=== PATIENT | female | born 1935 | race Hispanic/Latino ===

== ENCOUNTER 2017-07-14 10:45 | Day surgery (SDC) | payer MEDICARE, OTHER ==
[2017-07-06 13:59] VITALS: BMI 29.0
[2017-07-14 11:22] VITALS: O2SAT 98
[2017-07-14] MEDS ORDERED: Propofol 10 mg/ml Inj (20 ML) ONE ×2 (13:54→14:17)
[2017-07-14] MEDS ORDERED: Sodium Chloride 0.9% 1,000 ML IV SCH (14:45)
[2017-07-14 15:35] VITALS: PULSE 71; RESP 18; TEMP 98.1
[2017-07-14 16:30] VITALS: BP 124/68
== END 2017-07-14 16:30 | disposition home or self-care (01) ==
LOC: ENDO 10:45
PROVIDERS: ATTEND Internal Medicine Gastroenterology
DX: K57.30 Diverticulosis of large intestine without perforation or abscess without bleeding (principal); K64.8 Other hemorrhoids; I10 Essential (primary) hypertension; E78.5 Hyperlipidemia, unspecified
CPT/HCPCS: 45378; J2704; J7040 ×2

== ENCOUNTER 2017-10-26 07:30 | Inpatient (IN) | payer MEDICARE, OTHER ==
[2017-10-26 08:49] LABS: BASO # 0.01 K/mm3 (0.0-2.0); BASO % 0.1 % (0.0-3.0); EOS # 0.1 (0.0-0.7); EOS % 1.9 % (1.5-5.0); GRAN # 3.95 (1.4-6.5); GRAN % 58.8 % (50.0-68.0); HEMOGLOBIN 13.1 g/dL (12.0-16.0); LYMPH # 2.2 (1.2-3.4); LYMPH % 33.1 % (22.0-35.0); MEAN CELL VOLUME 85.4 fl (80.0-105.0); MEAN CORPUSCULAR HEMOGLOBIN 28.1 pg (25.0-35.0); MEAN CORPUSCULAR HGB CONC 32.9 g/dl (31.0-37.0); MEAN PLATELET VOLUME 9.9 fl (7.0-11.0); MONO # 0.4 (0.1-0.6); MONO % 6.1 % (1.0-6.0); RBC 4.66 10^6/uL (3.5-6.1); RED CELL DISTRIBUTION WIDTH 13.7 % (11.5-14.5); WHITE BLOOD COUNT 6.7 10^3/ul (4.5-11.0)
[2017-10-26 09:04] LABS: PARTIAL THROMBOPLASTIN TIME 31.8 Seconds (25.1-36.5); PROTHROMBIN TIME 11.5 SECONDS (9.4-12.5)
[2017-10-26 09:13] LABS: ALB/GLOB RATIO 1.4 (1.1-1.8); ALBUMIN 4.9 g/dL (3.0-4.8); CALCIUM 9.2 mg/dL (8.4-10.5)
[2017-10-26] MEDS ORDERED: Bupivacaine 0.5% Inj(30mL) ONE (10:25)
[2017-10-26] MEDS ORDERED: Propofol 10 mg/ml Inj (20 ML) ONE (10:26)
[2017-10-26] MEDS ORDERED: Rocuronium 10 mg/ml (5 ml) ONE ×2 (10:26→11:36)
[2017-10-26] MEDS ORDERED: metroNIDAZOLE IV 500 mg/100 ml 500 MG/100 ML BAG ONE (10:51)
[2017-10-26] MEDS ORDERED: CeFAZolin 1 gm in NS 100ml IVPB ONE (10:52)
[2017-10-26] MEDS ORDERED: MetroNIDAZOLE 500 mg/100 ml IVPB ONE (10:58)
[2017-10-26] MEDS ORDERED: ePHEDrine 50 mg/ml Inj ONE (11:12)
[2017-10-26] MEDS ORDERED: Bupivacaine 0.5% Inj(30mL) IJ ONE ×2 (11:48)
[2017-10-26] MEDS ORDERED: Neostigmine Methylsulfate 3mg/3ml Syringe IV ONE (13:24)
[2017-10-26] MEDS ORDERED: Morphine 4 mg/ml ISec ONE ×2 (13:46→14:10)
[2017-10-26] MEDS: HYDROmorphone 0.5 mg/0.5 ml ISec IVP PRN ×4 (14:44→18:00)
--- NOTE | 2017-10-26 14:44 | PCM.SURG1 ---
Surgeon's Initial Post Op Note - Surgeon's Notes Surgeon: Dr. Valentine Swimmer: Leatha PGY4, Giorgio PGY2, Ge CALL Type of Anesthesia: General Endo Anesthesia Administered By: Dr. Levy Pre-Operative Diagnosis: Diverticulosis, sigmoid mass Operative Findings: diverticulosis, inflammatory mass, adhesions Post-Operative Diagnosis: Diverticulosis Operation Performed: Laparoscopy hand assist sigmoid colectomy, lysis of adhesions, mobilization of splenic flexure Specimen/Specimens Removed: sigmoid colon Estimated Blood Loss: EBL {In ML}: 150 Blood Products Given: N/A Drains Used: Kayode Post-Op Condition: Good Date of Surgery/Procedure: 10/26/17 Time of Surgery/Procedure: 14:43
[2017-10-26] MEDS ORDERED: Lactated Ringer's 1,000 ML IV SCH ×2 (14:45)
[2017-10-26] MEDS ORDERED: ceFAZolin 1 gm in NS 1 GM/100 ML BAG IVPB SCH (15:00)
[2017-10-26] MEDS ORDERED: HYDROmorphone 0.5 mg/0.5 ml ISec ONE ×2 (15:08→15:21)
[2017-10-26] MEDS ORDERED: Non Formulary Medication (Simvastatin [Zocor] 20 MG) PO SCH (18:00)
[2017-10-26] MEDS: metroNIDAZOLE IV 500 mg/100 ml 500 MG/100 ML BAG IVPB SCH (18:00)
--- NOTE | 2017-10-26 18:28 | OP ---
PROCEDURE DATE: 10/26/2017 PREOPERATIVE DIAGNOSIS: Sigmoid colon mass. POSTOPERATIVE DIAGNOSES: Sigmoid colon mass and diverticulosis. PROCEDURES PERFORMED: 1. Laparoscopic sigmoid colon resection with extra-abdominal anastomosis construction. 2. Splenic flexure mobilization. SURGEON: Parth Valentine MD. DOPE DRY HOUSE OPERATOR: Janine Zhang DO and Evan Alvares DO ANESTHESIOLOGIST: Dr. Levy. ANESTHESIA: General endotracheal anesthesia. ESTIMATED BLOOD LOSS: Minimal. SPECIMEN: Sigmoid colon. INDICATIONS: The patient is an 81-year-old female with history of left lower quadrant abdominal pain, who had a CT scan revealing presence of a mass in the sigmoid colon. The patient had colonoscopy which was negative for cancer. Due to the recurrent pains in the left lower quadrant, the decision was made to proceed with excision of the sigmoid colon. DESCRIPTION OF PROCEDURE: The patient was brought to the operating room and placed on the operating table in a supine position. The patient was connected to the EKG, blood pressure, and pulse oximetry monitors. The patient then underwent general endotracheal anesthesia, and was prepped and draped in the usual sterile fashion. Using 2 towel clips, the anterior abdominal wall was elevated and a 12-mm trocar was placed under direct visualization for the midline just about 5 cm above the umbilicus. Once this was done and access to the abdominal cavity was obtained. We carefully obtained pneumoperitoneum and careful evaluation revealed the presence of the sigmoid colon with dense adhesions and induration in the area of the sigmoid colon about 10 cm proximal to sigmoido-rectal junction. At this point, we placed a second 12 mm trocar on the right side lateral to the rectus in the level of the umbilicus and a third 5 mm port in the suprapubic position. Now, using Harmonic scalpel and electrocautery, we carefully mobilized the sigmoid colon. It was elevated off the lateral wall attachments, mobilized down towards the pelvis and the splenic flexure was also mobilized. Once the entire descending colon was mobilized and detached from the sidewall and adequate length was obtained after mobilization of the splenic flexure in order to create anastomosis, we then proceeded with transection of the mesentery of this portion of the sigmoid colon and mobilized it fully in order to be able to exteriorize it. Once this was done, I then proceeded with creating a midline incision starting at the 5 mm trocar site and opened up towards the umbilicus for about 7 to 8 cm in order to be able to bring the specimen out. Once this was done, we then resected the involved portion of the sigmoid colon using NILESH staplers and created [id number]-[id number] anastomosis using NILESH and TA staplers. Once this was completed, the abdominal cavity was copiously irrigated and all the irrigant fluid was suctioned out. A Kayode drain was placed into the abdominal cavity and positioned into the pelvis near the anastomosis as well as into the left pericolic gutter. All the abdominal cavity was carefully evaluated. There was no active bleeding noted. All the irrigant fluid was suctioned out and we proceeded with closure of the wound using 0 Vicryl for the fascia at the trocar sites, #1 PDS for the access site in the midline, proceeded with 3-0 Vicryl closure of the subcutaneous fat, and surgical staple for the skin. A sterile Dermabond dressing was applied to all the wounds. Sterile 4 x 4 dressings were applied to the wounds. The patient tolerated the procedure well and there were no complications. The patient was awakened and transferred to the recovery room for further observation. Parth Valentine MD
[2017-10-26] MEDS: ceFAZolin 1 gm in NS 1 GM/100 ML BAG IVPB SCH (21:14)
[2017-10-26] MEDS ORDERED: Pneumococcal 23-Valent Vaccine IM ONE (21:41)
[2017-10-27] MEDS: metroNIDAZOLE IV 500 mg/100 ml 500 MG/100 ML BAG IVPB SCH ×2 (04:06→10:37)
[2017-10-27] MEDS: Lactated Ringer's 1,000 ML IV SCH ×2 (04:06→18:21)
[2017-10-27] MEDS: ceFAZolin 1 gm in NS 1 GM/100 ML BAG IVPB SCH (05:50)
[2017-10-27] MEDS: HYDROmorphone 0.5 mg/0.5 ml ISec IVP PRN ×3 (05:50→20:26)
[2017-10-27 06:59] LABS: GRAN # 8.15 (1.4-6.5); GRAN % 83.5 % (50.0-68.0); HEMOGLOBIN 11.3 g/dL (12.0-16.0); LYMPH # 0.8 (1.2-3.4); LYMPH % 7.9 % (22.0-35.0); MEAN CELL VOLUME 85.7 fl (80.0-105.0); MEAN CORPUSCULAR HEMOGLOBIN 28.3 pg (25.0-35.0); MONO # 0.8 (0.1-0.6); MONO % 8.6 % (1.0-6.0); RBC 3.99 10^6/uL (3.5-6.1); RED CELL DISTRIBUTION WIDTH 13.7 % (11.5-14.5); WHITE BLOOD COUNT 9.8 10^3/ul (4.5-11.0)
[2017-10-27 07:05] LABS: CALCIUM 8.4 mg/dL (8.4-10.5)
--- NOTE | 2017-10-27 08:28 | CP.PCM.CON ---
History of Present Illness - History of Present Illness History of Present Illness: Medicine Consult Note for Dr. Grider's service - Vangie Peace PGY3 HPI: Patient is a 81yo female with past medical history of hypertension, hyperlipidemia, osteoporosis, diverticulosis, sigmoid colon mass that was admitted to [facility] s/p sigmoid colon resection. She underwent a sigmoid colon resection due to history of left lower quadrant abdominal pain with divertulosis and sigmoid colon mass. She reportedly tolerated the procedure well, had no operative complications and was admitted for post-op observation. She reports feeling well overall with some mild-moderate amount of post-operative abdominal pain in the LLQ. She denies chest pain, palpitations, SOB, nausea, vomiting, fever, chills, cough, focal weakness, numbness, tingling. 12point ROS as per above, otherwise negative PMH: as stated above PSH: denies prior hx of surgery besides sigmoid colon resection Allergies: NKDA Medications: reviewed and as per chart Social Hx: Denies tobacco, alcohol and illicit drug use Family Hx: Father with hx of colon cancer; Mother with hx of parkinsons PMD: Dr. Tsang Past Patient History - Past Social History Smoking Status: Never Smoked - CARDIAC Hx Cardiac Disorders: Yes Hx Hypercholesterolemia: Yes Hx Pacemaker: No - PULMONARY Hx Respiratory Disorders: No - NEUROLOGICAL Hx Neurological Disorder: No - HEENT Hx HEENT Problems: No - RENAL Hx Chronic Kidney Disease: No - ENDOCRINE/METABOLIC Hx Endocrine Disorders: No - HEMATOLOGICAL/ONCOLOGICAL Hx Blood Disorders: No - INTEGUMENTARY Hx Dermatological Problems: No - MUSCULOSKELETAL/RHEUMATOLOGICAL Hx Musculoskeletal Disorders: Yes Hx Falls: No Hx Osteoporosis: Yes - GASTROINTESTINAL Hx Gastrointestinal Disorders: Yes (COLON MASS) Hx Diverticulitis: Yes Hx Gastroesophageal Reflux: Yes Other/Comment: 10-26-17 POST LAP SIGMOID COLON RESECTION WITH 1 HIMANSHU DRAIN TO LEFT.3 GUIDEWIRE INSCISIONS TO ABDOMINAL AREA .SOME REDNESS. - GENITOURINARY/GYNECOLOGICAL Hx Genitourinary Disorders: No - PSYCHIATRIC Hx Psychophysiologic Disorder: No Hx Emotional Abuse: No Hx Physical Abuse: No Hx Substance Use: No - SURGICAL HISTORY Hx Surgeries: Yes (LAP SIGMOID COLON RESECTION.) - ANESTHESIA Hx Anesthesia Reactions: No (ONLY COLONOSCOPY) Hx Malignant Hyperthermia: No Meds Allergies/Adverse Reactions: Allergies Allergy/AdvReac Type Severity Reaction Status Date / Time No Known Allergies Allergy Verified 10/26/17 18:42 - Medications Medications: Current Medications Acetaminophen (Tylenol 325mg Tab) 650 mg PO Q6 PRN PRN Reason: Pain, Mild (1-3) Atorvastatin Calcium (Lipitor) 10 mg PO QPM [facility] Last Admin: 10/26/17 18:00 Dose: 10 mg Calcium Carbonate (Caltrate) 600 mg PO BID [facility] Last Admin: 10/26/17 17:53 Dose: 600 mg Cholecalciferol (Vitamin D) 1,000 intlu PO QAM [facility] Enoxaparin Sodium (Lovenox) 40 mg SC DAILY [facility] PRN Reason: Protocol Hydromorphone HCl (Dilaudid) 0.5 mg IVP Q3H PRN PRN Reason: Pain, severe (8-10) Last Admin: 10/27/17 05:50 Dose: 0.5 mg Metronidazole (Flagyl) 500 mg in 100 mls @ 100 mls/hr IVPB Q8H [facility] PRN Reason: Protocol Stop: 10/27/17 11:59 Last Admin: 10/27/17 04:06 Dose: 100 mls/hr Lactated Ringer's (Lactated Ringer's) 1,000 mls @ 150 mls/hr IV .Q6H40M [facility] Last Admin: 10/27/17 04:06 Dose: 150 mls/hr Lisinopril (Zestril) 20 mg PO QAM [facility] Metoclopramide HCl (Reglan) 10 mg IV ONCE PRN PRN Reason: Nausea/Vomiting Non-Formulary Medication (Magnesium [Magnesium]) 250 mg PO QAM [facility] Ondansetron HCl (Zofran Inj) 4 mg IVP Q6 PRN PRN Reason: Nausea/Vomiting Raloxifene HCl (Evista) 60 mg PO DAILY [facility] Physical Exam - Constitutional Appears: No Acute Distress - Head Exam Head Exam: ATRAUMATIC, NORMAL INSPECTION, NORMOCEPHALIC - Eye Exam Eye Exam: EOMI Pupil Exam: PERRL - ENT Exam ENT Exam: Mucous Membranes Moist - Neck Exam Neck exam: Positive for: Normal Inspection - Respiratory Exam Respiratory Exam: Clear to Auscultation Bilateral. absent: Rales, Rhonchi, Wheezes - Cardiovascular Exam Cardiovascular Exam: RRR, +S1, +S2. absent: Gallop, JVD, Rubs - GI/Abdominal Exam GI & Abdominal Exam: Soft, Tenderness. absent: Distended, Firm, Guarding, Rebound, Rigid - Extremities Exam Extremities exam: Positive for: normal inspection. Negative for: pedal edema - Neurological Exam Neurological exam: Alert, CN II-XII Intact, Oriented x3 - Psychiatric Exam Psychiatric exam: Normal Affect, Normal Mood - Skin Skin Exam: Dry, Intact, Normal Color, Warm Results - Vital Signs Recent Vital Signs: Last Vital Signs Temp 98.1 F 10/26/17 21:22 Pulse 77 10/26/17 21:22 Resp 16 10/26/17 21:22 BP 119/59 L 10/26/17 21:22 Pulse Ox 98 10/26/17 15:26 - Labs Result Diagrams: 10/27/17 06:00 10/27/17 06:00 Labs: Laboratory Results - last 24 hr 10/26/17 10/26/17 10/26/17 08:20 08:20 08:20 WBC 6.7 D RBC 4.66 Hgb 13.1 Hct 39.8 MCV 85.4 MCH 28.1 MCHC 32.9 RDW 13.7 Plt Count 255 MPV 9.9 Gran % 58.8 Lymph % (Auto) 33.1 Oliver % (Auto) 6.1 H Eos % (Auto) 1.9 Baso % (Auto) 0.1 Gran # 3.95 Lymph # (Auto) 2.2 Oliver # (Auto) 0.4 Eos # (Auto) 0.1 Baso # (Auto) 0.01 PT 11.5 INR 1.00 APTT 31.8 Sodium 143 Potassium 3.5 L Chloride 104 Carbon Dioxide 22 Anion Gap 20 BUN 14 Creatinine 1.1 Est GFR ( Amer) 58 Est GFR (Non-Af Amer) 48 Random Glucose 94 Calcium 9.2 Phosphorus Magnesium Total Bilirubin 0.6 AST 29 ALT 22 Alkaline Phosphatase 82 Total Protein 8.5 H Albumin 4.9 H Globulin 3.6 Albumin/Globulin Ratio 1.4 Blood Type Antibody Screen BBK History Checked 10/26/17 10/27/17 10/27/17 08:20 06:00 06:00 WBC 9.8 D RBC 3.99 Hgb 11.3 L Hct 34.2 L MCV 85.7 MCH 28.3 MCHC 33.0 RDW 13.7 Plt Count 225 MPV 10.0 Gran % 83.5 H Lymph % (Auto) 7.9 L Oliver % (Auto) 8.6 H Eos % (Auto) 0.0 L Baso % (Auto) 0.0 Gran # 8.15 H Lymph # (Auto) 0.8 L Oliver # (Auto) 0.8 H Eos # (Auto) 0.0 Baso # (Auto) 0.00 PT INR APTT Sodium 142 Potassium 4.4 Chloride 106 Carbon Dioxide 24 Anion Gap 16 BUN 16 Creatinine 1.1 Est GFR ( Amer) 58 Est GFR (Non-Af Amer) 48 Random Glucose 126 H Calcium 8.4 Phosphorus 3.3 Magnesium 1.9 Total Bilirubin AST ALT Alkaline Phosphatase Total Protein Albumin Globulin Albumin/Globulin Ratio Blood Type O POSITIVE Antibody Screen Negative BBK History Checked Patient has bt Assessment & Plan - Assessment and Plan (Free Text) Plan: 81yo female with history of hypertension, hyperlipidemia, osteoporosis, diverticulosis, sigmoid colon mass that was admitted to [facility] s /p sigmoid colon resection 1. Sigmoid colon mass s/p sigmoid resection 2. Hx of Diverticulosis 3. Hypertension 4. Hyperlipidemia 5. Osteoporosis -She is s/p sigmoid resection and is on zofran for nausea/vomiting, tylenol/ dilaudid for pain control, lactated ringers for IVF hydration -She is on lisinopril for hypertension, raloxifene and calcium/vitamin D for osteoporosis, lipitor for hyperlipidemia -Lovenox SC for DVT prophylaxis -Recommend incentive spirometer, OOB to chair, HOB > 30', oral hygiene -Physical therapy -Further recommendations as per surgical team Patient seen and case discussed/reviewed with attending, Dr. Grider
[2017-10-27] MEDS: Cholecalciferol 1,000 INTLU TAB PO SCH (09:44)
[2017-10-27] MEDS: Enoxaparin 40 mg Syringe SC SCH (09:44)
[2017-10-27] MEDS ORDERED: MAGNESIUM 250 MG PO SCH (10:00)
--- NOTE | 2017-10-27 17:05 | CP.PCM.PN ---
Subjective - Date & Time of Evaluation Date of Evaluation: 10/27/17 Time of Evaluation: 07:00 - Subjective Subjective: GENERAL SURGERY PROGRESS NOTE FOR DR. RODRIGUEZ Pt seen and examined at bedside. She is doing well, pain well controlled. Pt denies nausea or vomiting. No flatus or BM yet. Objective - Vital Signs/Intake and Output Vital Signs (last 24 hours): Temp Pulse Resp BP Pulse Ox 98.4 F 73 14 126/59 L 92 L 10/27/17 14:00 10/27/17 14:00 10/27/17 14:00 10/27/17 14:00 10/27/17 14:00 Intake and Output: 10/27/17 10/27/17 06:59 18:59 Intake Total 2009 Output Total 745 170 Balance 1265 -170 - Medications Medications: Current Medications Acetaminophen (Tylenol 325mg Tab) 650 mg PO Q6 PRN PRN Reason: Pain, Mild (1-3) Atorvastatin Calcium (Lipitor) 10 mg PO QPM [facility] Last Admin: 10/26/17 18:00 Dose: 10 mg Calcium Carbonate (Caltrate) 600 mg PO BID [facility] Last Admin: 10/27/17 09:44 Dose: 600 mg Cholecalciferol (Vitamin D) [facility] Last Admin: 10/27/17 09:44 Dose: 1,000 intlu Enoxaparin Sodium (Lovenox) 40 mg SC DAILY [facility] PRN Reason: Protocol Last Admin: 10/27/17 09:44 Dose: 40 mg Hydromorphone HCl (Dilaudid) 0.5 mg IVP Q3H PRN PRN Reason: Pain, severe (8-10) Last Admin: 10/27/17 13:36 Dose: 0.5 mg Lactated Ringer's (Lactated Ringer's) 1,000 mls @ 150 mls/hr IV .Q6H40M [facility] Last Admin: 10/27/17 04:06 Dose: 150 mls/hr Lisinopril (Zestril) [facility] Last Admin: 10/27/17 10:38 Dose: Not Given Non-Formulary Medication (Magnesium [Magnesium]) [facility] Ondansetron HCl (Zofran Inj) 4 mg IVP Q6 PRN PRN Reason: Nausea/Vomiting Raloxifene HCl (Evista) 60 mg PO DAILY [facility] Last Admin: 10/27/17 10:34 Dose: 60 mg - Labs Labs: 10/27/17 06:00 10/27/17 06:00 PT 11.5 SECONDS (9.4-12.5) 10/26/17 08:20 INR 1.00 (0.93-1.08) 10/26/17 08:20 APTT 31.8 Seconds (25.1-36.5) 10/26/17 08:20 - Constitutional Appears: Well, Non-toxic, No Acute Distress - Head Exam Head Exam: ATRAUMATIC, NORMAL INSPECTION - Eye Exam Eye Exam: EOMI, Normal appearance - Respiratory Exam Respiratory Exam: NORMAL BREATHING PATTERN. absent: Respiratory Distress - Cardiovascular Exam Cardiovascular Exam: +S1, +S2 - GI/Abdominal Exam GI & Abdominal Exam: Soft, Tenderness (mild beth-incisional tenderness). absent : Distended, Firm, Guarding, Rigid, Rebound Additional comments: NG tube in place with minimal output Kayode drain in place with serosanguinous drainage: 45cc - Exam Additional comments: Jarvis in place - Neurological Exam Neurological Exam: Alert, Awake, Oriented x3 - Psychiatric Exam Psychiatric exam: Normal Affect, Normal Mood - Skin Skin Exam: Dry, Normal Color, Warm Assessment and Plan - Assessment and Plan (Free Text) Assessment: 81yo F s/p laparoscopic hand assisted sigmoidectomy POD#1 - Afebrile, VSS - DC Jarvis - DC NG tube - DVT PPx: Lovenox, AE hoses - CLD for dinner - Discussed plan with Dr. Meme Zhang PGY-4
[2017-10-27] MEDS ORDERED: Lactated Ringer's 1,000 ML IV SCH ×2 (19:29→23:00)
[2017-10-28] MEDS: HYDROmorphone 0.5 mg/0.5 ml ISec IVP PRN ×4 (01:32→15:24)
[2017-10-28 07:05] LABS: EOS % 0.5 % (1.5-5.0); GRAN # 5.32 (1.4-6.5); HEMOGLOBIN 10.4 g/dL (12.0-16.0); LYMPH # 1.7 (1.2-3.4); MEAN CELL VOLUME 86.3 fl (80.0-105.0); MEAN CORPUSCULAR HEMOGLOBIN 27.9 pg (25.0-35.0); MEAN CORPUSCULAR HGB CONC 32.3 g/dl (31.0-37.0); MONO # 0.7 (0.1-0.6); MONO % 9.5 % (1.0-6.0); RBC 3.73 10^6/uL (3.5-6.1); RED CELL DISTRIBUTION WIDTH 13.9 % (11.5-14.5); WHITE BLOOD COUNT 7.8 10^3/ul (4.5-11.0)
[2017-10-28 07:08] LABS: BLOOD UREA NITROGEN 16 mg/dL (7-21); GFR AFRICAN-AMERICAN > 60; GFR NON-AFRICAN AMERICAN > 60
--- NOTE | 2017-10-28 09:32 | CP.PCM.PN ---
<Bryce Peace - Last Filed: 10/28/17 09:54> Subjective - Date & Time of Evaluation Date of Evaluation: 10/28/17 Time of Evaluation: 09:31 - Subjective Subjective: Medicine progress note for Dr. Grider's service Patient seen and examined at bedside this morning. No acute overnight events or new complaints reported. She is out of bed to chair and reports feeling improved since yesterday. Mild abdominal tenderness. Denies chest pain, palpitations, SOB. Objective - Vital Signs/Intake and Output Vital Signs (last 24 hours): Temp Pulse Resp BP Pulse Ox 99.7 F H 58 L 20 119/60 95 10/28/17 06:00 10/28/17 09:28 10/28/17 06:00 10/28/17 09:28 10/28/17 06:00 Intake and Output: 10/28/17 10/28/17 06:59 18:59 Intake Total 620 Output Total 190 Balance 430 - Medications Medications: Current Medications Acetaminophen (Tylenol 325mg Tab) 650 mg PO Q6 PRN PRN Reason: Pain, Mild (1-3) Atorvastatin Calcium (Lipitor) 10 mg PO QPM [facility] Last Admin: 10/27/17 18:19 Dose: 10 mg Calcium Carbonate (Caltrate) 600 mg PO BID [facility] Last Admin: 10/27/17 18:19 Dose: 600 mg Cholecalciferol (Vitamin D) 1,000 intlu PO QAM [facility] Last Admin: 10/27/17 09:44 Dose: 1,000 intlu Enoxaparin Sodium (Lovenox) 40 mg SC DAILY [facility] PRN Reason: Protocol Last Admin: 10/27/17 09:44 Dose: 40 mg Hydromorphone HCl (Dilaudid) 0.5 mg IVP Q3H PRN PRN Reason: Pain, severe (8-10) Last Admin: 10/28/17 07:02 Dose: 0.5 mg Lisinopril (Zestril) 20 mg PO QAM [facility] Last Admin: 10/28/17 09:28 Dose: Not Given Non-Formulary Medication (Magnesium [Magnesium]) 250 mg PO QAM [facility] Ondansetron HCl (Zofran Inj) 4 mg IVP Q6 PRN PRN Reason: Nausea/Vomiting Oxycodone/Acetaminophen (Percocet 5/325 Mg Tab) 1 tab PO Q4H PRN PRN Reason: Pain, moderate (4-7) Stop: 10/30/17 17:26 Potassium Phos/Sodium Phos (Neutra-Phos) 1 pkt PO DAILY [facility] Raloxifene HCl (Evista) 60 mg PO DAILY [facility] Last Admin: 10/27/17 10:34 Dose: 60 mg - Labs Labs: 10/28/17 06:40 10/28/17 06:40 PT 11.5 SECONDS (9.4-12.5) 10/26/17 08:20 INR 1.00 (0.93-1.08) 10/26/17 08:20 APTT 31.8 Seconds (25.1-36.5) 10/26/17 08:20 - Constitutional Appears: No Acute Distress - Head Exam Head Exam: ATRAUMATIC, NORMAL INSPECTION, NORMOCEPHALIC - Eye Exam Eye Exam: EOMI, PERRL - ENT Exam ENT Exam: Mucous Membranes Moist - Respiratory Exam Respiratory Exam: Rales. absent: Rhonchi, Wheezes - Cardiovascular Exam Cardiovascular Exam: RRR, +S1, +S2. absent: Gallop, Rubs - GI/Abdominal Exam GI & Abdominal Exam: Soft, Tenderness. absent: Distended, Firm, Guarding, Rigid , Rebound - Neurological Exam Neurological Exam: Alert, Awake, CN II-XII Intact, Oriented x3 - Psychiatric Exam Psychiatric exam: Normal Affect, Normal Mood - Skin Skin Exam: Dry, Intact, Normal Color, Warm Assessment and Plan - Assessment and Plan (Free Text) Plan: 81yo female with history of hypertension, hyperlipidemia, osteoporosis, diverticulosis, sigmoid colon mass that was admitted to [facility] s /p sigmoid colon resection 1. Sigmoid colon mass s/p sigmoid resection 2. Hx of Diverticulosis 3. Hypertension 4. Hyperlipidemia 5. Osteoporosis -IVF discontinued due to rales at the lung bases -Neutraphos for low phosphate -Encouraged she use the incentive spirometer and continue with OOB to chair -She is s/p sigmoid resection and is on zofran for nausea/vomiting, tylenol/ dilaudid for pain control -She is on lisinopril for hypertension, raloxifene and calcium/vitamin D for osteoporosis, lipitor for hyperlipidemia -Lovenox SC for DVT prophylaxis -Recommend incentive spirometer, OOB to chair, HOB > 30', oral hygiene -Physical therapy -Further recommendations as per surgical team Patient seen and case discussed/reviewed with attending, Dr. Grider <Fred Grider - Last Filed: 10/29/17 18:36> Objective - Vital Signs/Intake and Output Vital Signs (last 24 hours): Temp Pulse Resp BP Pulse Ox 98.7 F 94 H 20 143/85 94 L 10/29/17 14:00 10/29/17 14:00 10/29/17 14:00 10/29/17 14:00 10/29/17 14:00 Intake and Output: 10/29/17 10/29/17 06:59 18:59 Intake Total 860 Output Total 450 40 Balance 410 -40 - Medications Medications: Current Medications Acetaminophen (Tylenol 325mg Tab) 650 mg PO Q6 PRN PRN Reason: Pain, Mild (1-3) Atorvastatin Calcium (Lipitor) 10 mg PO QPM [facility] Last Admin: 10/29/17 17:35 Dose: 10 mg Calcium Carbonate (Caltrate) 600 mg PO BID [facility] Last Admin: 10/29/17 17:35 Dose: 600 mg Cholecalciferol (Vitamin D) 1,000 intlu PO QAM [facility] Last Admin: 10/29/17 09:28 Dose: 1,000 intlu Enoxaparin Sodium (Lovenox) 40 mg SC DAILY [facility] PRN Reason: Protocol Last Admin: 10/29/17 09:28 Dose: 40 mg Lisinopril (Zestril) 20 mg PO QAM [facility] Last Admin: 10/29/17 09:29 Dose: 20 mg Magnesium Oxide (Mag-Ox) 400 mg PO BID [facility] Last Admin: 10/29/17 17:35 Dose: 400 mg Ondansetron HCl (Zofran Inj) 4 mg IVP Q6 PRN PRN Reason: Nausea/Vomiting Oxycodone/Acetaminophen (Percocet 5/325 Mg Tab) 1 tab PO Q4H PRN PRN Reason: Pain, moderate (4-7) Stop: 10/30/17 17:26 Last Admin: 10/29/17 13:20 Dose: 1 tab Potassium Phos/Sodium Phos (Neutra-Phos) 1 pkt PO BID [facility] Last Admin: 10/29/17 17:36 Dose: 1 pkt Raloxifene HCl (Evista) 60 mg PO DAILY [facility] Last Admin: 10/29/17 11:11 Dose: 60 mg - Labs Labs: 10/29/17 07:20 10/29/17 07:20 PT 11.5 SECONDS (9.4-12.5) 10/26/17 08:20 INR 1.00 (0.93-1.08) 10/26/17 08:20 APTT 31.8 Seconds (25.1-36.5) 10/26/17 08:20 Assessment and Plan - Assessment and Plan (Free Text) Plan: Pt seen and examined yesterday. This is a late entry. I have reviewed the note of the medical director/head team physician and agree with it. I have discussed the assessment and plan with the resident. I have reviewed the patient's labs and medications. Pt has pain that is controlled. Tolerating her diet. Replacing phosp. PT. Spoke to Surgery.
[2017-10-28] MEDS: Enoxaparin 40 mg Syringe SC SCH (09:36)
[2017-10-28] MEDS: Cholecalciferol 1,000 INTLU TAB PO SCH (09:37)
[2017-10-28] MEDS ORDERED: Potassium & Sodium Phosphate PO SCH (10:00)
--- NOTE | 2017-10-28 10:46 | CP.PCM.PN ---
Subjective - Date & Time of Evaluation Date of Evaluation: 10/28/17 Time of Evaluation: 10:43 - Subjective Subjective: General Surgery Progress Note for: Dr. Valentine. Pt was seen and examined this morning at bedside. She denies any acute events overnight. She states that she tolerated her CLD with no associated nausea or vomiting. She continues to deny fever, chills, nausea, vomiting, passing flatus or having a BM. She states that her pain is well controlled, and is ambulating OOB to chair with assistance. Had voided 3 times since surgery without any dysuria or blood in urine. Objective - Vital Signs/Intake and Output Vital Signs (last 24 hours): Temp Pulse Resp BP Pulse Ox 99.7 F H 58 L 20 119/60 95 10/28/17 06:00 10/28/17 09:28 10/28/17 06:00 10/28/17 09:28 10/28/17 06:00 Intake and Output: 10/28/17 10/28/17 06:59 18:59 Intake Total 620 Output Total 190 Balance 430 - Medications Medications: Current Medications Acetaminophen (Tylenol 325mg Tab) 650 mg PO Q6 PRN PRN Reason: Pain, Mild (1-3) Atorvastatin Calcium (Lipitor) 10 mg PO QPM [facility] Last Admin: 10/27/17 18:19 Dose: 10 mg Calcium Carbonate (Caltrate) 600 mg PO BID [facility] Last Admin: 10/28/17 09:37 Dose: 600 mg Cholecalciferol (Vitamin D) 1,000 intlu PO QAM [facility] Last Admin: 10/28/17 09:37 Dose: 1,000 intlu Enoxaparin Sodium (Lovenox) 40 mg SC DAILY [facility] PRN Reason: Protocol Last Admin: 10/28/17 09:36 Dose: 40 mg Hydromorphone HCl (Dilaudid) 0.5 mg IVP Q3H PRN PRN Reason: Pain, severe (8-10) Last Admin: 10/28/17 07:02 Dose: 0.5 mg Lisinopril (Zestril) 20 mg PO QAM [facility] Last Admin: 10/28/17 09:28 Dose: Not Given Non-Formulary Medication (Magnesium [Magnesium]) [facility] [place]dansetron HCl (Zofran Inj) 4 mg IVP Q6 PRN PRN Reason: Nausea/Vomiting Oxycodone/Acetaminophen (Percocet 5/325 Mg Tab) 1 tab PO Q4H PRN PRN Reason: Pain, moderate (4-7) Stop: 10/30/17 17:26 Potassium Phos/Sodium Phos (Neutra-Phos) 1 pkt PO DAILY [facility] Last Admin: 10/28/17 09:36 Dose: 1 pkt Raloxifene HCl (Evista) 60 mg PO DAILY [facility] Last Admin: 10/27/17 10:34 Dose: 60 mg - Labs Labs: 10/28/17 06:40 10/28/17 06:40 PT 11.5 SECONDS (9.4-12.5) 10/26/17 08:20 INR 1.00 (0.93-1.08) 10/26/17 08:20 APTT 31.8 Seconds (25.1-36.5) 10/26/17 08:20 - Constitutional Appears: Well, Non-toxic, No Acute Distress - Head Exam Head Exam: ATRAUMATIC, NORMOCEPHALIC - Eye Exam Eye Exam: EOMI, Normal appearance - Respiratory Exam Respiratory Exam: Clear to Ausculation Bilateral, NORMAL BREATHING PATTERN - Cardiovascular Exam Cardiovascular Exam: REGULAR RHYTHM. absent: Tachycardia - GI/Abdominal Exam GI & Abdominal Exam: Soft, Tenderness (near the incision site), Hypoactive Bowel Sounds - Psychiatric Exam Psychiatric exam: Normal Affect, Normal Mood - Skin Skin Exam: Dry, Intact, Normal Color, Warm Assessment and Plan - Assessment and Plan (Free Text) Assessment: Pt is a 81 yo F with hx of diverticulosis s/p laparoscopic hand assisted sigmoidectomy POD 2 Plan: - Tolerated CLD, will advance to FLD - Encourage pt to ambulate OOB to chair with assistance - f/u urine output - DVT prophylaxis with lovenox and AE hoses - Encourage IS use - Continue to monitor bowel function - Kayode drain is in place, monitor output - Further recs per Dr. Valentine
[2017-10-28] MEDS: Oxycodone/Acetaminophen 5/325 mg Tab PO PRN (22:42)
[2017-10-29 02:05] VITALS: RESP 20
--- NOTE | 2017-10-29 07:02 | CP.PCM.PN ---
<Bryce Peace - Last Filed: 10/29/17 08:50> Subjective - Date & Time of Evaluation Date of Evaluation: 10/29/17 Time of Evaluation: 07:01 - Subjective Subjective: Medicine progress note for Dr. Grider's service - Vangie Peace PGY3 Patient seen and examined at bedside this morning. No acute overnight events or new complaints reported. Denies chest pain, palptiations, SOB. Objective - Vital Signs/Intake and Output Vital Signs (last 24 hours): Temp Pulse Resp BP Pulse Ox 97.7 F 90 20 129/84 93 L 10/28/17 22:00 10/28/17 22:00 10/28/17 22:00 10/28/17 22:00 10/28/17 22:00 Intake and Output: 10/29/17 10/29/17 06:59 18:59 Intake Total 860 Output Total 450 Balance 410 - Medications Medications: Current Medications Acetaminophen (Tylenol 325mg Tab) 650 mg PO Q6 PRN PRN Reason: Pain, Mild (1-3) Atorvastatin Calcium (Lipitor) 10 mg PO QPM [facility] Last Admin: 10/28/17 18:19 Dose: 10 mg Calcium Carbonate (Caltrate) 600 mg PO BID [facility] Last Admin: 10/28/17 18:18 Dose: 600 mg Cholecalciferol (Vitamin D) 1,000 intlu PO QAM [facility] Last Admin: 10/28/17 09:37 Dose: 1,000 intlu Enoxaparin Sodium (Lovenox) 40 mg SC DAILY [facility] PRN Reason: Protocol Last Admin: 10/28/17 09:36 Dose: 40 mg Hydromorphone HCl (Dilaudid) 0.5 mg IVP Q3H PRN PRN Reason: Pain, severe (8-10) Last Admin: 10/28/17 15:24 Dose: 0.5 mg Lisinopril (Zestril) 20 mg PO QAM [facility] Last Admin: 10/28/17 09:28 Dose: Not Given Non-Formulary Medication (Magnesium [Magnesium]) 250 mg PO QAM [facility] Ondansetron HCl (Zofran Inj) 4 mg IVP Q6 PRN PRN Reason: Nausea/Vomiting Oxycodone/Acetaminophen (Percocet 5/325 Mg Tab) 1 tab PO Q4H PRN PRN Reason: Pain, moderate (4-7) Stop: 10/30/17 17:26 Last Admin: 10/28/17 22:42 Dose: 1 tab Potassium Phos/Sodium Phos (Neutra-Phos) 1 pkt PO DAILY [facility] Last Admin: 10/28/17 09:36 Dose: 1 pkt Raloxifene HCl (Evista) 60 mg PO DAILY [facility] Last Admin: 10/28/17 11:15 Dose: 60 mg - Labs Labs: 10/28/17 06:40 10/28/17 06:40 PT 11.5 SECONDS (9.4-12.5) 10/26/17 08:20 INR 1.00 (0.93-1.08) 10/26/17 08:20 APTT 31.8 Seconds (25.1-36.5) 10/26/17 08:20 - Constitutional Appears: No Acute Distress - Head Exam Head Exam: ATRAUMATIC, NORMAL INSPECTION, NORMOCEPHALIC - Eye Exam Eye Exam: EOMI Pupil Exam: PERRL - ENT Exam ENT Exam: Mucous Membranes Moist - Neck Exam Neck Exam: Normal Inspection - Respiratory Exam Respiratory Exam: Rales. absent: Rhonchi, Wheezes - Cardiovascular Exam Cardiovascular Exam: +S1, +S2. absent: Clicks, Gallop, Rubs - GI/Abdominal Exam GI & Abdominal Exam: Soft, Tenderness. absent: Distended, Firm, Guarding, Rigid , Rebound - Extremities Exam Extremities Exam: Normal Inspection - Neurological Exam Neurological Exam: Alert, Awake, CN II-XII Intact, Oriented x3 - Psychiatric Exam Psychiatric exam: Normal Affect, Normal Mood - Skin Skin Exam: Dry, Intact, Normal Color, Warm Assessment and Plan - Assessment and Plan (Free Text) Plan: 81yo female with history of hypertension, hyperlipidemia, osteoporosis, diverticulosis, sigmoid colon mass that was admitted to [facility] s /p sigmoid colon resection 1. Sigmoid colon mass s/p sigmoid resection 2. Hx of Diverticulosis 3. Hypertension 4. Hyperlipidemia 5. Osteoporosis -IVF discontinued yesterday due to rales at the lung bases -Neutraphos for low phosphate -Encouraged she use the incentive spirometer and continue with OOB to chair -She is s/p sigmoid resection and is on zofran for nausea/vomiting, tylenol/ dilaudid for pain control -She is on lisinopril for hypertension, raloxifene and calcium/vitamin D for osteoporosis, lipitor for hyperlipidemia -Lovenox SC for DVT prophylaxis -Recommend incentive spirometer, OOB to chair, HOB > 30', oral hygiene -Physical therapy -Further recommendations as per surgical team Patient seen and case discussed/reviewed with attending, Dr. Grider <Fred Grider - Last Filed: 10/29/17 23:03> Objective - Vital Signs/Intake and Output Vital Signs (last 24 hours): Temp Pulse Resp BP Pulse Ox 98.7 F 94 H 20 143/85 94 L 10/29/17 14:00 10/29/17 14:00 10/29/17 14:00 10/29/17 14:00 10/29/17 14:00 Intake and Output: 10/29/17 10/30/17 18:59 06:59 Intake Total 600 Output Total 40 Balance -40 600 - Medications Medications: Current Medications Acetaminophen (Tylenol 325mg Tab) 650 mg PO Q6 PRN PRN Reason: Pain, Mild (1-3) Atorvastatin Calcium (Lipitor) 10 mg PO QPM [facility] Last Admin: 10/29/17 17:35 Dose: 10 mg Calcium Carbonate (Caltrate) 600 mg PO BID [facility] Last Admin: 10/29/17 17:35 Dose: 600 mg Cholecalciferol (Vitamin D) 1,000 intlu PO QAM [facility] Last Admin: 10/29/17 09:28 Dose: 1,000 intlu Enoxaparin Sodium (Lovenox) 40 mg SC DAILY [facility] PRN Reason: Protocol Last Admin: 10/29/17 09:28 Dose: 40 mg Lisinopril (Zestril) 20 mg PO QAM [facility] Last Admin: 10/29/17 09:29 Dose: 20 mg Magnesium Oxide (Mag-Ox) 400 mg PO BID [facility] Last Admin: 10/29/17 17:35 Dose: 400 mg Ondansetron HCl (Zofran Inj) 4 mg IVP Q6 PRN PRN Reason: Nausea/Vomiting Oxycodone/Acetaminophen (Percocet 5/325 Mg Tab) 1 tab PO Q4H PRN PRN Reason: Pain, moderate (4-7) Stop: 10/30/17 17:26 Last Admin: 10/29/17 13:20 Dose: 1 tab Potassium Phos/Sodium Phos (Neutra-Phos) 1 pkt PO BID [facility] Last Admin: 10/29/17 17:36 Dose: 1 pkt Raloxifene HCl (Evista) 60 mg PO DAILY [facility] Last Admin: 10/29/17 11:11 Dose: 60 mg - Labs Labs: 10/29/17 07:20 10/29/17 07:20 PT 11.5 SECONDS (9.4-12.5) 10/26/17 08:20 INR 1.00 (0.93-1.08) 10/26/17 08:20 APTT 31.8 Seconds (25.1-36.5) 10/26/17 08:20 Assessment and Plan - Assessment and Plan (Free Text) Plan: Pt seen and examined. I have reviewed the note of the medical consultant and agree with it. I have discussed the assessment and plan with the resident. I have reviewed the patient's labs and medications. Pt is starting to ambulate. Her pain is controlled. Phsop is being replaced. She is doing incentive spirometry. BP is controlled. On Dilaudid for pain control.
[2017-10-29 07:44] LABS: BASO # 0.01 K/mm3 (0.0-2.0); BASO % 0.2 % (0.0-3.0); EOS # 0.1 (0.0-0.7); EOS % 1.6 % (1.5-5.0); GRAN # 4.54 (1.4-6.5); HEMOGLOBIN 11.3 g/dL (12.0-16.0); LYMPH % 15.9 % (22.0-35.0); MEAN CELL VOLUME 85.5 fl (80.0-105.0); MEAN CORPUSCULAR HEMOGLOBIN 27.8 pg (25.0-35.0); MEAN CORPUSCULAR HGB CONC 32.6 g/dl (31.0-37.0); MONO # 0.7 (0.1-0.6); MONO % 10.3 % (1.0-6.0); RBC 4.06 10^6/uL (3.5-6.1); RED CELL DISTRIBUTION WIDTH 13.8 % (11.5-14.5); WHITE BLOOD COUNT 6.3 10^3/ul (4.5-11.0)
--- NOTE | 2017-10-29 07:57 | CP.PCM.PN ---
Subjective - Date & Time of Evaluation Date of Evaluation: 10/29/17 Time of Evaluation: 07:57 - Subjective Subjective: General Surgery Progress Note for: Dr. Valentine Pt was seen and examined this morning at bedside. She denies any acute overnight events. States that she was able to tolerate her FLD without any associated nausea or vomiting. She continues to deny having a BM or passing flatus. She is ambulating with assistance of her family. Other than soreness when she gets out of bed, she has no acute complaints at this time. Objective - Vital Signs/Intake and Output Vital Signs (last 24 hours): Temp Pulse Resp BP Pulse Ox 97.7 F 90 20 129/84 93 L 10/28/17 22:00 10/28/17 22:00 10/28/17 22:00 10/28/17 22:00 10/28/17 22:00 Intake and Output: 10/29/17 10/29/17 06:59 18:59 Intake Total 860 Output Total 450 Balance 410 - Medications Medications: Current Medications Acetaminophen (Tylenol 325mg Tab) 650 mg PO Q6 PRN PRN Reason: Pain, Mild (1-3) Atorvastatin Calcium (Lipitor) 10 mg PO QPM [facility] Last Admin: 10/28/17 18:19 Dose: 10 mg Calcium Carbonate (Caltrate) 600 mg PO BID [facility] Last Admin: 10/28/17 18:18 Dose: 600 mg Cholecalciferol (Vitamin D) 1,000 intlu PO QAM [facility] Last Admin: 10/28/17 09:37 Dose: 1,000 intlu Enoxaparin Sodium (Lovenox) 40 mg SC DAILY [facility] PRN Reason: Protocol Last Admin: 10/28/17 09:36 Dose: 40 mg Hydromorphone HCl (Dilaudid) 0.5 mg IVP Q3H PRN PRN Reason: Pain, severe (8-10) Last Admin: 10/28/17 15:24 Dose: 0.5 mg Lisinopril (Zestril) 20 mg PO QAM [facility] Last Admin: 10/28/17 09:28 Dose: Not Given Non-Formulary Medication (Magnesium [Magnesium]) 250 mg PO QAM [facility] Ondansetron HCl (Zofran Inj) 4 mg IVP Q6 PRN PRN Reason: Nausea/Vomiting Oxycodone/Acetaminophen (Percocet 5/325 Mg Tab) 1 tab PO Q4H PRN PRN Reason: Pain, moderate (4-7) Stop: 10/30/17 17:26 Last Admin: 10/28/17 22:42 Dose: 1 tab Potassium Phos/Sodium Phos (Neutra-Phos) 1 pkt PO DAILY [facility] Last Admin: 10/28/17 09:36 Dose: 1 pkt Raloxifene HCl (Evista) 60 mg PO DAILY [facility] Last Admin: 10/28/17 11:15 Dose: 60 mg - Labs Labs: 10/29/17 07:20 10/28/17 06:40 PT 11.5 SECONDS (9.4-12.5) 10/26/17 08:20 INR 1.00 (0.93-1.08) 10/26/17 08:20 APTT 31.8 Seconds (25.1-36.5) 10/26/17 08:20 - Constitutional Appears: Well, Non-toxic, No Acute Distress - Head Exam Head Exam: ATRAUMATIC, NORMOCEPHALIC - Eye Exam Eye Exam: EOMI, Normal appearance - Respiratory Exam Respiratory Exam: Clear to Ausculation Bilateral, NORMAL BREATHING PATTERN - Cardiovascular Exam Cardiovascular Exam: REGULAR RHYTHM - GI/Abdominal Exam GI & Abdominal Exam: Soft, Tenderness (next to incision site. Incision site is clean. dry, with no surrouding discharge, purulence, or erythema), Hypoactive Bowel Sounds. absent: Distended, Firm, Guarding, Rigid Additional comments: Kayode drain in place with serosanguineous drainage. - Neurological Exam Neurological Exam: Alert, Awake, Oriented x3 - Psychiatric Exam Psychiatric exam: Normal Affect, Normal Mood - Skin Skin Exam: Dry, Intact, Normal Color, Warm. absent: Cyanosis, Petechiae Assessment and Plan - Assessment and Plan (Free Text) Assessment: Pt is a 81 yo F with hx of diverticulosis s/p laparoscopic hand assisted sigmoidectomy POD 3 Plan: - Tolerated FLD, will advance when pt has return of bowel function - Pain is being managed well, pt has not received dilaudid since yesterday. Dilaudid d/c, pt on percocet PRN for pain - Encourage pt to ambulate OOB to chair with assistance - DVT prophylaxis with lovenox and AE hoses - Encourage IS use - Continue to monitor bowel function - Kayode drain is in place, monitor output - Keflex for 5 days upon d/c - Further recs per Dr. Meme Zaragoza PGY1
[2017-10-29 08:05] LABS: BLOOD UREA NITROGEN 11 mg/dL (7-21); CALCIUM 9.3 mg/dL (8.4-10.5); GFR AFRICAN-AMERICAN > 60; GFR NON-AFRICAN AMERICAN > 60
[2017-10-29] MEDS: Cholecalciferol 1,000 INTLU TAB PO SCH (09:28)
[2017-10-29] MEDS: Enoxaparin 40 mg Syringe SC SCH (09:28)
[2017-10-29] MEDS: Potassium & Sodium Phosphate PO SCH ×2 (09:28→17:36)
[2017-10-29] MEDS: Magnesium Oxide 400 mg Tab UD PO SCH ×2 (09:28→17:35)
[2017-10-29] MEDS: Oxycodone/Acetaminophen 5/325 mg Tab PO PRN (13:20)
[2017-10-30 06:23] LABS: BASO # 0.01 K/mm3 (0.0-2.0); BASO % 0.1 % (0.0-3.0); EOS # 0.2 (0.0-0.7); EOS % 2.3 % (1.5-5.0); GRAN # 5.22 (1.4-6.5); GRAN % 65.8 % (50.0-68.0); HEMOGLOBIN 11.5 g/dL (12.0-16.0); LYMPH # 1.9 (1.2-3.4); LYMPH % 24.2 % (22.0-35.0); MEAN CELL VOLUME 84.8 fl (80.0-105.0); MEAN CORPUSCULAR HEMOGLOBIN 27.7 pg (25.0-35.0); MEAN CORPUSCULAR HGB CONC 32.7 g/dl (31.0-37.0); MONO # 0.6 (0.1-0.6); MONO % 7.6 % (1.0-6.0); RBC 4.15 10^6/uL (3.5-6.1); RED CELL DISTRIBUTION WIDTH 13.7 % (11.5-14.5); WHITE BLOOD COUNT 7.9 10^3/ul (4.5-11.0)
[2017-10-30 06:58] LABS: BLOOD UREA NITROGEN 8 mg/dL (7-21); CALCIUM 9.1 mg/dL (8.4-10.5); GFR AFRICAN-AMERICAN > 60; GFR NON-AFRICAN AMERICAN > 60
[2017-10-30] MEDS ORDERED: Potassium Chloride 20 mEq ER Tab PO ONE (08:00)
--- NOTE | 2017-10-30 08:05 | CP.PCM.PN ---
<Bryce Peace - Last Filed: 10/30/17 08:01> Subjective - Date & Time of Evaluation Date of Evaluation: 10/30/17 Time of Evaluation: 08:02 - Subjective Subjective: Medicine progress note for Dr. Grider's service - Vangie Peace PGY3 Patient seen and examined at bedside this morning. No acute overnight events or new complaints reported. She reported one small bowel movement yesterday afternoon and has been started on regular diet. Denies chest pain, palpitations , SOB. Objective - Vital Signs/Intake and Output Vital Signs (last 24 hours): Temp Pulse Resp BP Pulse Ox 98.7 F 91 H 20 168/89 H 94 L 10/29/17 14:00 10/30/17 05:06 10/29/17 14:00 10/30/17 05:06 10/29/17 14:00 Intake and Output: 10/30/17 10/30/17 06:59 18:59 Intake Total 600 Output Total 820 Balance -220 - Medications Medications: Current Medications Acetaminophen (Tylenol 325mg Tab) 650 mg PO Q6 PRN PRN Reason: Pain, Mild (1-3) Atorvastatin Calcium (Lipitor) 10 mg PO QPM [facility] Last Admin: 10/29/17 17:35 Dose: 10 mg Calcium Carbonate (Caltrate) 600 mg PO BID [facility] Last Admin: 10/29/17 17:35 Dose: 600 mg Cholecalciferol (Vitamin D) 1,000 intlu PO QAM [facility] Last Admin: 10/29/17 09:28 Dose: 1,000 intlu Enoxaparin Sodium (Lovenox) 40 mg SC DAILY [facility] PRN Reason: Protocol Last Admin: 10/29/17 09:28 Dose: 40 mg Lisinopril (Zestril) 20 mg PO QAM [facility] Last Admin: 10/30/17 05:06 Dose: 20 mg Magnesium Oxide (Mag-Ox) 400 mg PO BID [facility] Last Admin: 10/29/17 17:35 Dose: 400 mg Ondansetron HCl (Zofran Inj) 4 mg IVP Q6 PRN PRN Reason: Nausea/Vomiting Oxycodone/Acetaminophen (Percocet 5/325 Mg Tab) 1 tab PO Q4H PRN PRN Reason: Pain, moderate (4-7) Stop: 10/30/17 17:26 Last Admin: 10/29/17 13:20 Dose: 1 tab Potassium Chloride (K-Dur 20 Meq Er Tab) 40 meq PO ONCE ONE Stop: 10/30/17 08:01 Potassium Phos/Sodium Phos (Neutra-Phos) 1 pkt PO BID [facility] Last Admin: 10/29/17 17:36 Dose: 1 pkt Raloxifene HCl (Evista) 60 mg PO DAILY [facility] Last Admin: 10/29/17 11:11 Dose: 60 mg - Labs Labs: 10/30/17 05:30 10/30/17 05:30 PT 11.5 SECONDS (9.4-12.5) 10/26/17 08:20 INR 1.00 (0.93-1.08) 10/26/17 08:20 APTT 31.8 Seconds (25.1-36.5) 10/26/17 08:20 - Constitutional Appears: No Acute Distress - Head Exam Head Exam: ATRAUMATIC, NORMAL INSPECTION, NORMOCEPHALIC - Eye Exam Eye Exam: EOMI Pupil Exam: PERRL - ENT Exam ENT Exam: Mucous Membranes Moist - Neck Exam Neck Exam: Normal Inspection - Respiratory Exam Respiratory Exam: Clear to Ausculation Bilateral. absent: Rales, Rhonchi, Wheezes - Cardiovascular Exam Cardiovascular Exam: RRR, +S1, +S2. absent: Gallop, Rubs, Murmur - GI/Abdominal Exam GI & Abdominal Exam: Soft, Tenderness, Hypoactive Bowel Sounds. absent: Distended, Firm, Guarding, Rigid, Rebound - Neurological Exam Neurological Exam: Alert, Awake, CN II-XII Intact, Oriented x3 - Psychiatric Exam Psychiatric exam: Normal Affect, Normal Mood - Skin Skin Exam: Dry, Intact, Normal Color, Warm Assessment and Plan - Assessment and Plan (Free Text) Plan: 81yo female with history of hypertension, hyperlipidemia, osteoporosis, diverticulosis, sigmoid colon mass that was admitted to [facility] ([facility]) s /p sigmoid colon resection 1. Sigmoid colon mass s/p sigmoid resection 2. Hx of Diverticulosis 3. Hypertension 4. Hyperlipidemia 5. Osteoporosis -Potassium repleted this morning -Neutraphos for low phosphate -IVF discontinued -Encouraged she use the incentive spirometer and continue with OOB to chair -She is s/p sigmoid resection and is on zofran for nausea/vomiting, tylenol/ dilaudid for pain control -She is on lisinopril for hypertension, raloxifene and calcium/vitamin D for osteoporosis, lipitor for hyperlipidemia -Lovenox SC for DVT prophylaxis -Recommend incentive spirometer, OOB to chair, HOB > 30', oral hygiene -Physical therapy -Further recommendations as per surgical team Patient seen and case discussed/reviewed with attending, Dr. Grider <Fred Grider - Last Filed: 10/30/17 20:11> Objective - Vital Signs/Intake and Output Vital Signs (last 24 hours): Temp Pulse Resp BP Pulse Ox 98.3 F 94 H 20 138/71 94 L 10/30/17 14:00 10/30/17 14:00 10/30/17 14:00 10/30/17 14:00 10/30/17 14:00 - Medications Medications: Current Medications Acetaminophen (Tylenol 325mg Tab) 650 mg PO Q6 PRN PRN Reason: Pain, Mild (1-3) Last Admin: 10/30/17 16:15 Dose: 650 mg Atorvastatin Calcium (Lipitor) 10 mg PO QPM [facility] Last Admin: 10/30/17 18:18 Dose: 10 mg Calcium Carbonate (Caltrate) 600 mg PO BID [facility] Last Admin: 10/30/17 18:17 Dose: 600 mg Cholecalciferol (Vitamin D) 1,000 intlu PO QAM [facility] Last Admin: 10/30/17 09:39 Dose: 1,000 intlu Enoxaparin Sodium (Lovenox) 40 mg SC DAILY [facility] PRN Reason: Protocol Last Admin: 10/30/17 09:40 Dose: 40 mg Lisinopril (Zestril) 20 mg PO QAM [facility] Last Admin: 10/30/17 09:49 Dose: Not Given Magnesium Oxide (Mag-Ox) 400 mg PO BID [facility] Last Admin: 10/30/17 18:18 Dose: 400 mg Ondansetron HCl (Zofran Inj) 4 mg IVP Q6 PRN PRN Reason: Nausea/Vomiting Potassium Phos/Sodium Phos (Neutra-Phos) 1 pkt PO BID [facility] Last Admin: 10/30/17 18:18 Dose: 1 pkt Raloxifene HCl (Evista) 60 mg PO DAILY [facility] Last Admin: 10/30/17 09:39 Dose: 60 mg - Labs Labs: 10/30/17 05:30 10/30/17 05:30 PT 11.5 SECONDS (9.4-12.5) 10/26/17 08:20 INR 1.00 (0.93-1.08) 10/26/17 08:20 APTT 31.8 Seconds (25.1-36.5) 10/26/17 08:20 Assessment and Plan - Assessment and Plan (Free Text) Plan: Pt seen and examined. I have reviewed the note of the medical office scheduler and agree with it. I have discussed the assessment and plan with the resident. I have reviewed the patient's labs and medications. She is ambulating. Pain is controlled. Eating well.
[2017-10-30] MEDS ORDERED: Potassium Chloride 20 mEq/15 ml LIQ UD PO ONE (08:37)
[2017-10-30] MEDS: Potassium & Sodium Phosphate PO SCH ×2 (09:39→18:18)
[2017-10-30] MEDS: Cholecalciferol 1,000 INTLU TAB PO SCH (09:39)
[2017-10-30] MEDS: Magnesium Oxide 400 mg Tab UD PO SCH ×2 (09:39→18:18)
[2017-10-30] MEDS: Enoxaparin 40 mg Syringe SC SCH (09:40)
--- NOTE | 2017-10-30 10:37 | CP.PCM.PN ---
Subjective - Date & Time of Evaluation Date of Evaluation: 10/30/17 Time of Evaluation: 07:00 - Subjective Subjective: GENERAL SURGERY PROGRESS NOTE FOR DR. RODRIGUEZ Patient seen and examined at bedside. Pt OOB to chair. Pt states that she passed flatus once yesterday and had one small liquid BM. Pt denies nausea or vomiting. She had regular diet for breakfast and had some abdominal pain after. Pt requesting soft diet. Objective - Vital Signs/Intake and Output Vital Signs (last 24 hours): Temp Pulse Resp BP Pulse Ox 98.4 F 91 H 20 168/89 H 97 10/30/17 06:00 10/30/17 06:00 10/30/17 06:00 10/30/17 06:00 10/30/17 06:00 Intake and Output: 10/30/17 10/30/17 06:59 18:59 Intake Total 600 Output Total 820 Balance -220 - Medications Medications: Current Medications Acetaminophen (Tylenol 325mg Tab) 650 mg PO Q6 PRN PRN Reason: Pain, Mild (1-3) Last Admin: 10/30/17 08:35 Dose: 650 mg Atorvastatin Calcium (Lipitor) 10 mg PO QPM [facility] Last Admin: 10/29/17 17:35 Dose: 10 mg Calcium Carbonate (Caltrate) 600 mg PO BID [facility] Last Admin: 10/30/17 09:39 Dose: 600 mg Cholecalciferol (Vitamin D) 1,000 intlu PO QAM [facility] Last Admin: 10/30/17 09:39 Dose: 1,000 intlu Enoxaparin Sodium (Lovenox) 40 mg SC DAILY [facility] PRN Reason: Protocol Last Admin: 10/30/17 09:40 Dose: 40 mg Lisinopril (Zestril) 20 mg PO QAM [facility] Last Admin: 10/30/17 09:49 Dose: Not Given Magnesium Oxide (Mag-Ox) 400 mg PO BID [facility] Last Admin: 10/30/17 09:39 Dose: 400 mg Ondansetron HCl (Zofran Inj) 4 mg IVP Q6 PRN PRN Reason: Nausea/Vomiting Oxycodone/Acetaminophen (Percocet 5/325 Mg Tab) 1 tab PO Q4H PRN PRN Reason: Pain, moderate (4-7) Stop: 10/30/17 17:26 Last Admin: 10/29/17 13:20 Dose: 1 tab Potassium Phos/Sodium Phos (Neutra-Phos) 1 pkt PO BID [facility] Last Admin: 10/30/17 09:39 Dose: 1 pkt Raloxifene HCl (Evista) 60 mg PO DAILY [facility] Last Admin: 10/30/17 09:39 Dose: 60 mg - Labs Labs: 10/30/17 05:30 10/30/17 05:30 PT 11.5 SECONDS (9.4-12.5) 10/26/17 08:20 INR 1.00 (0.93-1.08) 10/26/17 08:20 APTT 31.8 Seconds (25.1-36.5) 10/26/17 08:20 - Constitutional Appears: Well, Non-toxic, No Acute Distress - Head Exam Head Exam: ATRAUMATIC, NORMAL INSPECTION - Eye Exam Eye Exam: EOMI, Normal appearance - Cardiovascular Exam Cardiovascular Exam: +S1, +S2 - GI/Abdominal Exam GI & Abdominal Exam: Distended (mildly), Soft. absent: Firm, Guarding, Rigid, Tenderness, Rebound Additional comments: Midline incision with víctor in place 2 laparoscopic incision sites with dermabond in place Kayode drain in place with serosanguinous drainage - Neurological Exam Neurological Exam: Alert, Awake, Oriented x3 - Psychiatric Exam Psychiatric exam: Normal Affect, Normal Mood - Skin Skin Exam: Dry, Normal Color, Warm Assessment and Plan - Assessment and Plan (Free Text) Assessment: 81yo F s/p laparoscopic hand assisted sigmoidectomy POD#4 Pathology: diverticulosis, acute diverticulitis w/ abscess containing foreign body giant cells, serosal hemorrhage and adhesions, 17 benign lymph nodes - Afebrile, VSS - Bowel function returning, + flatus and + BM yesterday - Soft diet - Kayode drain in place - Pt ambulating, OOB to chair, using IS - DVT PPx: Lovenox, AE hoses - Discussed plan with Dr. Mmee Zhang PGY-4
[2017-10-30 22:21] VITALS: BP 152/88
[2017-10-31 06:51] LABS: BASO # 0.01 K/mm3 (0.0-2.0); BASO % 0.2 % (0.0-3.0); EOS # 0.2 (0.0-0.7); EOS % 3.3 % (1.5-5.0); GRAN # 3.6 (1.4-6.5); GRAN % 57.3 % (50.0-68.0); HEMOGLOBIN 11.6 g/dL (12.0-16.0); LYMPH % 32.4 % (22.0-35.0); MEAN CELL VOLUME 85.3 fl (80.0-105.0); MEAN CORPUSCULAR HEMOGLOBIN 27.6 pg (25.0-35.0); MEAN CORPUSCULAR HGB CONC 32.3 g/dl (31.0-37.0); MEAN PLATELET VOLUME 9.7 fl (7.0-11.0); MONO # 0.4 (0.1-0.6); MONO % 6.8 % (1.0-6.0); RBC 4.21 10^6/uL (3.5-6.1); RED CELL DISTRIBUTION WIDTH 13.9 % (11.5-14.5); WHITE BLOOD COUNT 6.3 10^3/ul (4.5-11.0)
[2017-10-31 07:25] LABS: BLOOD UREA NITROGEN 11 mg/dL (7-21); CALCIUM 8.8 mg/dL (8.4-10.5); GFR AFRICAN-AMERICAN > 60; GFR NON-AFRICAN AMERICAN > 60
--- NOTE | 2017-10-31 08:35 | CP.PCM.DIS ---
Provider - Provider Date of Admission: 10/26/17 07:37 Attending physician: Parth Valentine MD Primary care physician: Rishabh Tsang MD Consults: Dr. Grider, internal medicine Time Spent in preparation of Discharge (in minutes): 40 Diagnosis - Discharge Diagnosis (1) S/P colectomy Status: Acute (2) Diverticulosis Status: Chronic (3) Diverticulitis of large intestine with abscess Status: Chronic (4) HTN (hypertension) Status: Chronic (5) HLD (hyperlipidemia) Status: Chronic (6) Osteoporosis Status: Chronic Hospital Course - Lab Results Lab Results: Most Recent Lab Values WBC 6.3 10^3/ul (4.5-11.0) D 10/31/17 06:40 RBC 4.21 10^6/uL (3.5-6.1) 10/31/17 06:40 Hgb 11.6 g/dL (12.0-16.0) L 10/31/17 06:40 Hct 35.9 % (36.0-48.0) L 10/31/17 06:40 MCV 85.3 fl (80.0-105.0) 10/31/17 06:40 MCH 27.6 pg (25.0-35.0) 10/31/17 06:40 MCHC 32.3 g/dl (31.0-37.0) 10/31/17 06:40 RDW 13.9 % (11.5-14.5) 10/31/17 06:40 Plt Count 296 10^3/uL (120.0-450.0) 10/31/17 06:40 MPV 9.7 fl (7.0-11.0) 10/31/17 06:40 Gran % 57.3 % (50.0-68.0) 10/31/17 06:40 Lymph % (Auto) 32.4 % (22.0-35.0) 10/31/17 06:40 Millard % (Auto) 6.8 % (1.0-6.0) H 10/31/17 06:40 Eos % (Auto) 3.3 % (1.5-5.0) 10/31/17 06:40 Baso % (Auto) 0.2 % (0.0-3.0) 10/31/17 06:40 Gran # 3.60 (1.4-6.5) 10/31/17 06:40 Lymph # (Auto) 2.0 (1.2-3.4) 10/31/17 06:40 Millard # (Auto) 0.4 (0.1-0.6) 10/31/17 06:40 Eos # (Auto) 0.2 (0.0-0.7) 10/31/17 06:40 Baso # (Auto) 0.01 K/mm3 (0.0-2.0) 10/31/17 06:40 PT 11.5 SECONDS (9.4-12.5) 10/26/17 08:20 INR 1.00 (0.93-1.08) 10/26/17 08:20 APTT 31.8 Seconds (25.1-36.5) 10/26/17 08:20 Sodium 143 mmol/L (132-148) 10/31/17 06:40 Potassium 3.4 mmol/L (3.6-5.0) L 10/31/17 06:40 Chloride 104 mmol/L (98-107) 10/31/17 06:40 Carbon Dioxide 29 mmol/L (21-33) 10/31/17 06:40 Anion Gap 14 (10-20) 10/31/17 06:40 BUN 11 mg/dL (7-21) 10/31/17 06:40 Creatinine 0.8 mg/dl (0.7-1.2) 10/31/17 06:40 Est GFR ( Amer) > 60 10/31/17 06:40 Est GFR (Non-Af Amer) > 60 10/31/17 06:40 Random Glucose 111 mg/dL (70-110) H 10/31/17 06:40 Calcium 8.8 mg/dL (8.4-10.5) 10/31/17 06:40 Phosphorus 2.5 mg/dL (2.5-4.5) 10/30/17 06:30 Magnesium 1.7 mg/dL (1.7-2.2) 10/29/17 07:20 Total Bilirubin 0.6 mg/dL (0.2-1.3) 10/26/17 08:20 AST 29 U/L (14-36) 10/26/17 08:20 ALT 22 U/L (7-56) 10/26/17 08:20 Alkaline Phosphatase 82 U/L (38-126) 10/26/17 08:20 Total Protein 8.5 g/dL (5.8-8.3) H 10/26/17 08:20 Albumin 4.9 g/dL (3.0-4.8) H 10/26/17 08:20 Globulin 3.6 gm/dL 10/26/17 08:20 Albumin/Globulin Ratio 1.4 (1.1-1.8) 10/26/17 08:20 Blood Type O POSITIVE 10/26/17 08:20 Antibody Screen Negative 10/26/17 08:20 BBK History Checked Patient has bt 10/26/17 08:20 - Hospital Course Hospital Course: Patient is an 81F with PMH of diverticulosis with diverticulitis with concern for mass of the sigmoid colon. Patient presented from outpatient and underwent a hand assisted laparoscopic sigmoidectomy with primary anastamosis. Dr. Keri Grider was consulted to assist in management of patient's medical comorbidities. Patient recovered well, and by post-op day 5 was ambulating, tolerating regular diet, pain was well controlled with PO tylenol, and having multiple soft bowel movements. Kayode drain placed during surgery was removed and patient was discharged to home with PO keflex for 5 days, instructions to follow up with Dr. Valentine in his office, and to follow up with her primary physician. Wound care instructions, activity limitations, and concerning symptoms were discussed at length with patient and patient's and they expressed understanding and comfort with them. For full hospital course, please refer to chart Discharge Exam - Head Exam Head Exam: ATRAUMATIC, NORMAL INSPECTION Discharge Plan - Discharge Medications Prescriptions: Cephalexin [Keflex] 500 mg PO BID 5 Days #10 capsule - Follow Up Plan Condition: GOOD Disposition: HOME/ ROUTINE Instructions: Colectomy, Partial and Total, (DC) Additional Instructions: Follow up with Dr. Carrizales in 2 weeks--Call his office for appointment Follow up with your primary doctor Resume home medications as normal Cover the midline incision with betadine 1x/day and cover with dressing if you wish to keep overlying clothing clean You may shower after in 2 days after you remove the dressing in the left abdomen at the drain site No lifting >10 pounds for 4 weeks or until cleared by Dr. Valentine Return to ER or call Dr. Carrizales's office for fever >100.4 not resolved with tylenol, redness or swelling around the incision, any pus coming from incision, severely worsened abdominal pain, or any other concerning symptoms Take tylenol per the bottle's instructions for pain with motrin in between doses for any break-through pain Take 5 days of antibiotics as instructed. Your perscription should be at your pharmacy Referrals: Rishabh Tsang MD [Primary Care Provider] - Parth Valentine MD [Staff Provider] -
[2017-10-31 09:09] VITALS: PULSE 88; TEMP 98.3; O2SAT 96
[2017-10-31] MEDS: Enoxaparin 40 mg Syringe SC SCH (09:35)
[2017-10-31] MEDS: Magnesium Oxide 400 mg Tab UD PO SCH (09:35)
[2017-10-31] MEDS: Potassium & Sodium Phosphate PO SCH (09:35)
[2017-10-31] MEDS: Cholecalciferol 1,000 INTLU TAB PO SCH (09:36)
== END 2017-10-31 13:00 | disposition home or self-care (01) | DRG 330 ==
LOC: EDSTATUS 07:30 → SDAINP 07:37 → 5RSO 16:11 → 5RNO 10-31 03:16
PROVIDERS: ADMIT General Practice; ATTEND General Practice
PROC: 0DTN4ZZ Resection of Sigmoid Colon, Percutaneous Endoscopic Approach (ICD-10-PCS; principal; 2017-10-26 09:30)
DX: K57.20 Diverticulitis of large intestine with perforation and abscess without bleeding (principal); E78.5 Hyperlipidemia, unspecified; I10 Essential (primary) hypertension; M81.0 Age-related osteoporosis without current pathological fracture; Z82.0 Family history of epilepsy and other diseases of the nervous system; Z80.0 Family history of malignant neoplasm of digestive organs

== ENCOUNTER 2018-06-04 12:24 | Outpatient (CLI) | payer MEDICARE, OTHER | END 2018-06-04 12:25 | disposition home or self-care (01) | LOC: RAD 12:24 ==